=== PATIENT | male | born 1980 | race African-American/Black ===

== ENCOUNTER 2019-09-01 00:35 | Emergency (ER) | payer SELFPAY ==
[~2019-09-01] VITALS: Ht 170.2 cm; Wt 72.6 kg
[2019-09-01 01:45] VITALS: BP_SYST 120
--- NOTE | 2019-09-01 02:10 | NUR ---
Pt ambulatory to bed 6 for evaluation
--- NOTE | 2019-09-01 02:10 | NUR ---
Pt here for HIV testing and PEP. Pt states that he had sex yesterday and is concerned that the person may have HIV. Pt denies penile discharge, no burning urinations, no testicular pain or swelling.
--- NOTE | 2019-09-01 02:20 | NUR ---
ER at bedside examining patient.
[2019-09-01 03:27] LABS: BASOPHILS % (AUTO) 0.5 % (0.0-2.0); EOSINOPHILS # (AUTO) 0.1 K/uL (0.0-0.4); EOSINOPHILS % (AUTO) 1.9 % (0.0-4.0); HEMOGLOBIN 13.7 g/dL (14.0-18.0); LYMPHOCYTES # (AUTO) 2.3 K/uL (1.0-5.5); LYMPHOCYTES % (AUTO) 44.4 % (20.5-51.5); MEAN CORPUSCULAR HEMOGLOBIN 31 pg (27-31); MEAN CORPUSCULAR HGB CONC 33 % (32-36); MEAN CORPUSCULAR VOLUME 92 fL (79.0-98.0); MONOCYTES # (AUTO) 0.3 K/uL (0.0-1.0); MONOCYTES % (AUTO) 6.7 % (1.7-9.3); NEUTROPHILS # (AUTO) 2.4 K/uL (1.8-7.7); NEUTROPHILS % (AUTO) 46.5 % (40.0-70.0); PLATELET COUNT (AUTO) 203 K/uL (130-430); RED BLOOD CELL COUNT(AUTO) 4.48 MIL/uL (4.2-6.2); RED CELL DISTRIBUTION WIDTH 13.2 % (9.0-15.0); WHITE BLOOD COUNT (AUTO) 5.2 K/uL (4.8-10.8)
[2019-09-01 04:24] LABS: CALCIUM 9.3 mg/dL (8.4-11.0); CREATININE 1.2 mg/dL (0.55-1.30); POTASSIUM 3.9 mmol/L (3.5-5.1)
[2019-09-01 04:29] LABS: ALBUMIN 4.5 g/dL (3.4-4.8); TOTAL BILIRUBIN 0.6 mg/dL (0.0-1.0)
[2019-09-01 04:30] VITALS: BP_SYST 121
--- NOTE | 2019-09-01 04:30 | NUR ---
Patient given written and verbal discharge instructions and verbalizes understanding. ER MD discussed with patient the results and treatment provided. Patient in stable condition. ID arm band removed. Rx of Truvada and Isentress given. Patient educated on pain management and to follow up with PMD. Pain Scale 0/10. Opportunity for questions provided and answered.
== END 2019-09-01 04:30 | disposition home or self-care (01) ==
LOC: SED 00:35
DX: Z20.6 Contact with and (suspected) exposure to human immunodeficiency virus [HIV] (principal)
CPT/HCPCS: 36415; 80053; 85025; 86592; 87491; 87536; 87591; 99283